=== PATIENT | female | born 1935 | race Two or more races ===

== ENCOUNTER → 2018-06-22 | Outpatient (CLI) | payer OTHER | END | disposition home or self-care (01) | LOC: RAD 10:25 | DX: J45.998 Other asthma (principal) ==

== ENCOUNTER 2018-07-20 10:51 | Outpatient (CLI) | payer OTHER | END 2018-07-20 11:03 | disposition home or self-care (01) | LOC: MAMO-SONO 10:51 → SONOGRAMA 10:51 → MAMO-SONO 11:03 | DX: Z12.31 Encounter for screening mammogram for malignant neoplasm of breast (principal); Z87.898 Personal history of other specified conditions; N64.89 Other specified disorders of breast; R10.12 Left upper quadrant pain ==

== ENCOUNTER → 2018-08-25 | Outpatient (CLI) | payer OTHER | END | disposition home or self-care (01) | LOC: NUCLEAR 07:00 | DX: I20.9 Angina pectoris, unspecified (principal) | CPT/HCPCS: 78452; 93017; A9500; J0153 ==

== ENCOUNTER 2020-01-24 10:38 | Outpatient (CLI) | payer OTHER | END 2020-01-24 10:43 | disposition home or self-care (01) | LOC: RAD 10:38 | PROVIDERS: ATTEND Orthopaedic Surgery | DX: M79.671 Pain in right foot (principal); M79.672 Pain in left foot; M25.571 Pain in right ankle and joints of right foot; M25.572 Pain in left ankle and joints of left foot ==

== ENCOUNTER 2022-07-18 09:49 | Outpatient (CLI) | payer OTHER | END 2022-07-18 09:55 | disposition home or self-care (01) | LOC: SONOGRAMA 09:49 | PROVIDERS: ATTEND Specialist | DX: R22.2 Localized swelling, mass and lump, trunk (principal) ==

== ENCOUNTER 2024-01-13 15:14 | Outpatient (CLI) | payer OTHER | END 2024-01-13 15:22 | disposition home or self-care (01) | LOC: RAD 15:14 | PROVIDERS: ATTEND Physical Medicine & Rehabilitation | DX: M54.51 Vertebrogenic low back pain (principal) ==

== ENCOUNTER → 2024-08-20 | Outpatient (CLI) | payer OTHER | END | disposition home or self-care (01) | LOC: MRI 12:47 | PROVIDERS: ATTEND Internal Medicine Endocrinology, Diabetes & Metabolism | DX: M81.0 Age-related osteoporosis without current pathological fracture (principal); M54.10 Radiculopathy, site unspecified; E04.9 Nontoxic goiter, unspecified | CPT/HCPCS: 72148 ==